=== PATIENT | male | born 1965 | race African-American/Black ===

== ENCOUNTER 2017-05-06 18:05 | Emergency (ER) | payer OTHER ==
[~2017-05-06] VITALS: Ht 170.2 cm; Wt 90.7 kg
[~2017-05-06 18:05] MED LIST: CARISOPRODOL 3350 MG PO; FLEXERIL PO; MEDROLDOSEPACK PO; NORFLEX100 MG PO; NORVASC5 MG PO; PERCOCET 5-3251 EACH PO; PREDNISONE 20 M20 MG PO; TIZANIDINE HCL4 MG PO
[2017-05-06 18:52] LABS: URINE BILIRUBIN NEGATIVE (Negative); URINE BLOOD NEGATIVE (Negative); URINE COLOR YELLOW; URINE GLUCOSE-RANDOM* NEGATIVE (Negative); URINE KETONES TRACE (Negative); URINE LEUKOCYTES-REFLEX NEGATIVE (Negative); URINE PROTEIN (DIPSTICK) NEGATIVE (Negative)
[2017-05-06 19:08] LABS: HEMATOCRIT 44.5 % (42.0-52.0); HEMOGLOBIN 14.8 gm/dL (14.0-18.0); MANUAL DIFF YES; MCH 32.1 pg (26.0-34.0); MCHC 33.3 g/dL (28.0-37.0); MCV 96.3 fL (80.0-100.0); PLATELET COUNT 222 thou/uL (150-400); RBC 4.62 mil/uL (4.50-6.00); RDW 12.7 % (10.5-14.5); WBC 12.8 thou/uL (4.0-11.0)
[2017-05-06 19:17] LABS: CALCIUM 9.1 mg/dL (8.5-10.1)
[2017-05-06 19:46] LABS: ABSOLUTE NEUTROPHILS 10.8 thou/uL (1.4-8.2); ANISOCYTOSIS 1+; TOTAL CELL COUNT 100
[2017-05-07 01:18] VITALS: BP 151/96
== END 2017-05-07 01:18 | disposition short-term general hospital (02) ==
LOC: ER 18:05
PROVIDERS: Emergency Medicine
DX: M48.061 Spinal stenosis, lumbar region without neurogenic claudication (principal); R33.9 Retention of urine, unspecified